=== PATIENT | male | born 1965 | race Caucasian/White ===

== ENCOUNTER 2022-10-13 07:14 | Day surgery (SDC) | payer OTHER ==
[2022-10-13] MEDS ORDERED: Propofol 200 MG/20 ML SDV ONE (08:00)
[2022-10-13] MEDS ORDERED: fentaNYL 50 MCG/ML SDV ONE (08:00)
[2022-10-13] MEDS ORDERED: Midazolam 1 MG/ML 2 ML SDV ONE (08:00)
[2022-10-13] MEDS ORDERED: Lactated Ringers 1,000 ML IV SCH (08:15)
== END 2022-10-13 11:15 | disposition home or self-care (01) ==
LOC: JP.SDS 07:14
PROVIDERS: ATTEND Student in an Organized Health Care Education/Training Program
DX: K21.00 Gastro-esophageal reflux disease with esophagitis, without bleeding (principal); K29.50 Unspecified chronic gastritis without bleeding; K29.80 Duodenitis without bleeding; K31.7 Polyp of stomach and duodenum; K31.1 Adult hypertrophic pyloric stenosis; K31.A19 Gastric intestinal metaplasia without dysplasia, unspecified site; I10 Essential (primary) hypertension; F32.A Depression, unspecified; E78.00 Pure hypercholesterolemia, unspecified; Z88.5 Allergy status to narcotic agent; Z88.1 Allergy status to other antibiotic agents; Z88.8 Allergy status to other drugs, medicaments and biological substances
CPT/HCPCS: 43239; 88305; 88342; J2250; J2704; J3010; J7120

== ENCOUNTER 2022-12-20 11:00 | Inpatient (IN) | payer OTHER ==
[2023-01-03] MEDS ORDERED: Scopolamine 1.5 MG Transdermal Patch TOP ONE (06:03)
[2023-01-03] MEDS ORDERED: Acetaminophen 500 MG Tab PO ONE (06:15)
[2023-01-03] MEDS ORDERED: Gabapentin 300 MG Cap PO ONE (06:15)
[2023-01-03 06:23] LABS: HEMATOCRIT 42.4 % (38.4-49.7); HEMOGLOBIN 15.2 g/dL (12.9-16.9); MEAN CORPUSCULAR HEMOGLOBIN 29.6 pg (31.6-35.5); MEAN CORPUSCULAR HGB CONC 35.8 g/dL (31.6-35.5); MEAN CORPUSCULAR VOLUME 82.7 fL (81.4-99.0); RED BLOOD CELL COUNT 5.13 M/uL (4.14-5.76); WHITE BLOOD CELL COUNT,WBC 6.9 K/uL (3.2-11.0)
[2023-01-03] MEDS ORDERED: Enoxaparin 40 MG/0.4 ML Syringe SUBCUT ONE (06:30)
[2023-01-03 06:44] LABS: A/G RATIO 1.1 (1.2-2.2); ALANINE AMINOTRANSFERASE,ALT 49 U/L (12-78); ALBUMIN 4.3 g/dL (3.4-5.0); ALKALINE PHOSPHATASE 86 U/L (46-116); ASPARTATE AMNIOTRANSFERASE,AST 25 U/L (15-37); BLOOD UREA NITROGEN,BUN 16 mg/dL (7-18); CARBON DIOXIDE,CO2 26 mmol/L (21-32); CHLORIDE,CL 102 mmol/L (100-108); ESTIMATED GFR 87 mL/min (>60); GLUCOSE RANDOM 145 mg/dL (74-106); POTASSIUM,K 3.2 mmol/L (3.6-5.2); PROTEIN TOTAL,TP 8.1 g/dL (6.4-8.2); SODIUM,NA 137 mmol/L (140-148)
[2023-01-03 06:46] LABS: ANION GAP 12.2 mmol/L (5.0-14.0)
[2023-01-03] MEDS ORDERED: Glycopyrrolate 0.2 MG/ML 5 ML MDV ONE (06:55)
[2023-01-03] MEDS ORDERED: Neostigmine Methylsulfate 1 MG/ML 5 ML Syringe ONE (06:55)
[2023-01-03] MEDS ORDERED: Succinylcholine 200 MG/10 ML MDV ONE (06:55)
[2023-01-03] MEDS ORDERED: Propofol 200 MG/20 ML SDV ONE (06:55)
[2023-01-03] MEDS ORDERED: Rocuronium 50 MG/5 ML Vial ONE (06:55)
[2023-01-03] MEDS ORDERED: Dexamethasone 4 MG/ML SDV ONE (06:55)
[2023-01-03] MEDS ORDERED: Ondansetron 4 MG/2 ML SDV ONE (06:55)
[2023-01-03] MEDS ORDERED: fentaNYL 250 MCG/5 ML SDV ONE ×2 (06:57→08:29)
[2023-01-03] MEDS ORDERED: Sodium Chloride 0.9% 1,000 ML IV SCH (07:00)
[2023-01-03] MEDS ORDERED: Bupivacaine 0.5%/EPINEPHrine 1:200,000 50 ML MDV ONE ×2 (07:02→07:04)
[2023-01-03] MEDS ORDERED: metroNIDAZOLE/Normal Saline 500 MG in Premix Bag 1 BAG IV ONE (07:30)
[2023-01-03] MEDS ORDERED: Ketamine 500 MG/5 ML MDV IV SCH (07:30)
[2023-01-03] MEDS ORDERED: Ketamine 25 MG in Sodium Chloride 0.9% 19.75 ML IV SCH (07:30)
[2023-01-03] MEDS: Potassium Chloride 10 MEQ in Premix Bag 1 BAG IV SCH ×5 (07:30→11:50)
[2023-01-03] MEDS ORDERED: cefTRIAXone 2 GM in Sodium Chloride 0.9% 50 ML IV ONE (07:30)
[2023-01-03] MEDS ORDERED: Lactated Ringers 1,000 ML ONE (09:09)
[2023-01-03] MEDS: Lactated Ringers 1,000 ML IV SCH ×2 (11:29→19:49)
[2023-01-03] MEDS ORDERED: HYDROmorphone 0.5 MG/0.5 ML Syringe IVPUSH ONE (11:52)
[2023-01-03] MEDS: Acetaminophen 1,000 MG in Premix Bag 1 BAG IV SCH ×2 (13:58→22:56)
[2023-01-03 14:29] LABS: CALCIUM 8.5 mg/dL (8.5-10.1); EST CRCL DRUG DOSING (CG) 87.3 mL/min; MAGNESIUM 1.9 mg/dL (1.8-2.4); PHOSPHORUS 3.6 mg/dL (2.5-4.9); POTASSIUM,K 3.6 mmol/L (3.6-5.2)
[2023-01-03 14:46] LABS: ANION GAP 11.6 mmol/L (5.0-14.0)
[2023-01-03] MEDS: Ondansetron 4 MG/2 ML SDV IVPUSH PRN ×2 (16:55→23:10)
[2023-01-03] MEDS: HYDROmorphone 2 MG Tab PO PRN ×2 (16:55→22:56)
[2023-01-03] MEDS ORDERED: Enoxaparin 40 MG/0.4 ML Syringe SUBCUT SCH (23:00)
[2023-01-04] MEDS: Lactated Ringers 1,000 ML IV SCH ×2 (04:07→17:02)
[2023-01-04] MEDS: HYDROmorphone 2 MG Tab PO PRN ×2 (05:04→18:25)
[2023-01-04] MEDS: Acetaminophen 1,000 MG in Premix Bag 1 BAG IV SCH ×3 (05:06→21:30)
[2023-01-04 05:50] LABS: HEMATOCRIT 28.8 % (38.4-49.7); HEMOGLOBIN 10.2 g/dL (12.9-16.9); MEAN CORPUSCULAR HEMOGLOBIN 29.6 pg (31.6-35.5); MEAN CORPUSCULAR HGB CONC 35.4 g/dL (31.6-35.5); MEAN CORPUSCULAR VOLUME 83.5 fL (81.4-99.0); RED BLOOD CELL COUNT 3.45 M/uL (4.14-5.76); WHITE BLOOD CELL COUNT,WBC 12.7 K/uL (3.2-11.0)
[2023-01-04 06:11] LABS: A/G RATIO 1.1 (1.2-2.2); ALANINE AMINOTRANSFERASE,ALT 622 U/L (12-78); ALBUMIN 3.1 g/dL (3.4-5.0); ALKALINE PHOSPHATASE 62 U/L (46-116); ASPARTATE AMNIOTRANSFERASE,AST 368 U/L (15-37); BILIRUBIN TOTAL 0.7 mg/dL (0.2-1.0); BLOOD UREA NITROGEN,BUN 22 mg/dL (7-18); CALCIUM 8.1 mg/dL (8.5-10.1); CARBON DIOXIDE,CO2 27 mmol/L (21-32); CHLORIDE,CL 104 mmol/L (100-108); ESTIMATED GFR 87 mL/min (>60); GLUCOSE RANDOM 150 mg/dL (74-106); MAGNESIUM 1.9 mg/dL (1.8-2.4); POTASSIUM,K 3.6 mmol/L (3.6-5.2); SODIUM,NA 136 mmol/L (140-148)
[2023-01-04 06:14] LABS: ANION GAP 8.6 mmol/L (5.0-14.0)
[2023-01-04] MEDS ORDERED: Lactated Ringers 500 ML IV ONE ×2 (08:00→15:31)
[2023-01-04] MEDS ORDERED: Non-Formulary Medication 1 Each (Atorvastatin [Lipitor] 80 MG Tablet) PO SCH (09:00)
[2023-01-04] MEDS ORDERED: atorvaSTATin 20 MG Tab PO SCH (09:00)
[2023-01-04 09:06] LABS: HEMATOCRIT 27.3 % (38.4-49.7); HEMOGLOBIN 9.6 g/dL (12.9-16.9); MEAN CORPUSCULAR HEMOGLOBIN 29.7 pg (31.6-35.5); MEAN CORPUSCULAR HGB CONC 35.2 g/dL (31.6-35.5); MEAN CORPUSCULAR VOLUME 84.5 fL (81.4-99.0); RED BLOOD CELL COUNT 3.23 M/uL (4.14-5.76); WHITE BLOOD CELL COUNT,WBC 14.2 K/uL (3.2-11.0)
[2023-01-04] MEDS: Pantoprazole 40 MG Vial IVPUSH SCH (09:44)
[2023-01-04] MEDS ORDERED: Metoprolol Tartrate 25 MG Tab PO SCH (10:00)
[2023-01-04 13:21] LABS: HEMATOCRIT 25.9 % (38.4-49.7); HEMOGLOBIN 9.3 g/dL (12.9-16.9); MEAN CORPUSCULAR HGB CONC 35.9 g/dL (31.6-35.5); MEAN CORPUSCULAR VOLUME 83.5 fL (81.4-99.0); RED BLOOD CELL COUNT 3.1 M/uL (4.14-5.76); WHITE BLOOD CELL COUNT,WBC 14.5 K/uL (3.2-11.0)
[2023-01-04 13:59] LABS: ANION GAP 9.6 mmol/L (5.0-14.0); CALCIUM 8.4 mg/dL (8.5-10.1); CREATININE 1.1 mg/dL (0.8-1.3); EST CRCL DRUG DOSING (CG) 79.36 mL/min; POTASSIUM,K 3.6 mmol/L (3.6-5.2)
[2023-01-04] MEDS ORDERED: Lidocaine 2% Jelly 10 ML Urojet MUCMEM ONE (16:20)
[2023-01-04] MEDS ORDERED: HYDROmorphone 0.5 MG/0.5 ML Syringe IVPUSH STA (19:39)
[2023-01-04] MEDS: Ondansetron 4 MG/2 ML SDV IVPUSH PRN (19:52)
[2023-01-04 20:07] LABS: HEMATOCRIT 23.8 % (38.4-49.7); HEMOGLOBIN 8.4 g/dL (12.9-16.9); MEAN CORPUSCULAR HEMOGLOBIN 29.8 pg (31.6-35.5); MEAN CORPUSCULAR HGB CONC 35.3 g/dL (31.6-35.5); MEAN CORPUSCULAR VOLUME 84.4 fL (81.4-99.0); RED BLOOD CELL COUNT 2.82 M/uL (4.14-5.76); WHITE BLOOD CELL COUNT,WBC 11.7 K/uL (3.2-11.0)
[2023-01-04 20:27] LABS: ANION GAP 6.8 mmol/L (5.0-14.0); CALCIUM 8.1 mg/dL (8.5-10.1); CREATININE 0.9 mg/dL (0.8-1.3); MAGNESIUM 1.9 mg/dL (1.8-2.4); PHOSPHORUS 2.3 mg/dL (2.5-4.9); POTASSIUM,K 3.8 mmol/L (3.6-5.2)
[2023-01-04 20:36] LABS: INR 1.1; PROTHROMBIN TIME 11.5 sec (9.2-10.6)
[2023-01-04] MEDS: Tamsulosin 0.4 MG Cap.ER PO SCH (20:42)
[2023-01-04] MEDS ORDERED: Sodium Phosphate 15 mMole/5 ML SDV IV ONE (20:48)
[2023-01-04] MEDS ORDERED: Sodium Phosphate 15 MMOLE in Sodium Chloride 0.9% 250 ML IV ONE (21:00)
[2023-01-05] MEDS: Lactated Ringers 1,000 ML IV SCH ×3 (01:19→16:33)
[2023-01-05 04:24] LABS: HEMATOCRIT 21.6 % (38.4-49.7); HEMOGLOBIN 7.6 g/dL (12.9-16.9); MEAN CORPUSCULAR HEMOGLOBIN 29.9 pg (31.6-35.5); MEAN CORPUSCULAR HGB CONC 35.2 g/dL (31.6-35.5); RED BLOOD CELL COUNT 2.54 M/uL (4.14-5.76); WHITE BLOOD CELL COUNT,WBC 8.7 K/uL (3.2-11.0)
[2023-01-05 04:45] LABS: ALANINE AMINOTRANSFERASE,ALT 835 U/L (12-78); ALBUMIN 2.8 g/dL (3.4-5.0); ALKALINE PHOSPHATASE 55 U/L (46-116); ANION GAP 8.3 mmol/L (5.0-14.0); ASPARTATE AMNIOTRANSFERASE,AST 366 U/L (15-37); BILIRUBIN TOTAL 0.6 mg/dL (0.2-1.0); BLOOD UREA NITROGEN,BUN 19 mg/dL (7-18); CALCIUM 7.8 mg/dL (8.5-10.1); CARBON DIOXIDE,CO2 29 mmol/L (21-32); CHLORIDE,CL 104 mmol/L (100-108); CREATININE 0.9 mg/dL (0.8-1.3); ESTIMATED GFR 98 mL/min (>60); GLUCOSE RANDOM 117 mg/dL (74-106); PHOSPHORUS 2.2 mg/dL (2.5-4.9); POTASSIUM,K 3.6 mmol/L (3.6-5.2); PROTEIN TOTAL,TP 5.6 g/dL (6.4-8.2); SODIUM,NA 141 mmol/L (140-148)
[2023-01-05] MEDS ORDERED: Sodium Phosphate 15 mMole/5 ML SDV IV ONE (07:04)
[2023-01-05] MEDS ORDERED: Sodium Phosphate 15 MMOLE in Sodium Chloride 0.9% 250 ML IV ONE (09:00)
[2023-01-05] MEDS: HYDROmorphone 2 MG Tab PO PRN ×2 (09:11→15:48)
[2023-01-05] MEDS: Pantoprazole 40 MG Vial IVPUSH SCH (09:18)
[2023-01-05] MEDS: Acetaminophen 500 MG Tab PO SCH ×2 (09:49→17:02)
[2023-01-05 15:18] LABS: HEMATOCRIT 21.7 % (38.4-49.7); HEMOGLOBIN 7.6 g/dL (12.9-16.9); MEAN CORPUSCULAR HEMOGLOBIN 29.7 pg (31.6-35.5); MEAN CORPUSCULAR VOLUME 84.8 fL (81.4-99.0); RED BLOOD CELL COUNT 2.56 M/uL (4.14-5.76); WHITE BLOOD CELL COUNT,WBC 8.5 K/uL (3.2-11.0)
[2023-01-05 15:34] LABS: CALCIUM 8.1 mg/dL (8.5-10.1); CREATININE 0.9 mg/dL (0.8-1.3); PHOSPHORUS 2.1 mg/dL (2.5-4.9); POTASSIUM,K 3.4 mmol/L (3.6-5.2)
[2023-01-05 15:43] LABS: ANION GAP 10.4 mmol/L (5.0-14.0)
[2023-01-05] MEDS ORDERED: Potassium Chloride 10 MEQ in Premix Bag 1 BAG IV ONE (16:30)
[2023-01-05] MEDS ORDERED: Sodium Phosphate 30 MMOLE in Sodium Chloride 0.9% 250 ML IV ONE (17:30)
[2023-01-05] MEDS: Tamsulosin 0.4 MG Cap.ER PO SCH (21:11)
[2023-01-06] MEDS: Acetaminophen 500 MG Tab PO SCH ×3 (01:24→18:23)
[2023-01-06 04:50] LABS: HEMATOCRIT 19.7 % (38.4-49.7); MEAN CORPUSCULAR HEMOGLOBIN 29.7 pg (31.6-35.5); MEAN CORPUSCULAR HGB CONC 34.5 g/dL (31.6-35.5); RED BLOOD CELL COUNT 2.29 M/uL (4.14-5.76); WHITE BLOOD CELL COUNT,WBC 6.4 K/uL (3.2-11.0)
[2023-01-06 04:58] LABS: HEMOGLOBIN 6.8 g/dL (12.9-16.9)
[2023-01-06 05:09] LABS: ALANINE AMINOTRANSFERASE,ALT 528 U/L (12-78); ALBUMIN 2.9 g/dL (3.4-5.0); ALKALINE PHOSPHATASE 56 U/L (46-116); ASPARTATE AMNIOTRANSFERASE,AST 155 U/L (15-37); BILIRUBIN TOTAL 0.8 mg/dL (0.2-1.0); BLOOD UREA NITROGEN,BUN 11 mg/dL (7-18); CARBON DIOXIDE,CO2 28 mmol/L (21-32); CHLORIDE,CL 107 mmol/L (100-108); CREATININE 0.7 mg/dL (0.8-1.3); EST CRCL DRUG DOSING (CG) 124.71 mL/min; ESTIMATED GFR 106 mL/min (>60); GLUCOSE RANDOM 102 mg/dL (74-106); POTASSIUM,K 3.4 mmol/L (3.6-5.2); PROTEIN TOTAL,TP 5.7 g/dL (6.4-8.2); SODIUM,NA 142 mmol/L (140-148)
[2023-01-06 05:11] LABS: ANION GAP 10.4 mmol/L (5.0-14.0)
[2023-01-06] MEDS ORDERED: Sodium Phosphate 30 MMOLE in Sodium Chloride 0.9% 250 ML IV ONE ×2 (07:00→09:00)
[2023-01-06] MEDS ORDERED: Furosemide 40 MG/4 ML VIAL IV ONE (09:00)
[2023-01-06] MEDS ORDERED: Metoprolol Succinate 50 MG Tab.ER PO ONE (09:00)
[2023-01-06] MEDS: Pantoprazole 40 MG Vial IVPUSH SCH (09:23)
[2023-01-06] MEDS: Lisinopril 20 MG Tab PO SCH (09:44)
[2023-01-06] MEDS: Hydrochlorothiazide 12.5 MG Cap PO SCH (09:44)
[2023-01-06 11:52] LABS: BASOPHILS ABSOLUTE AUTO 0.04 K/uL (0.00-0.10); BASOPHILS PERCENT AUTO 0.5 % (0.1-1.3); EOSINOPHILS ABSOLUTE AUTO 0.18 K/uL (0.00-0.40); EOSINOPHILS PERCENT AUTO 2.2 % (0.0-5.4); HEMATOCRIT 24.6 % (38.4-49.7); HEMOGLOBIN 8.8 g/dL (12.9-16.9); IMMATURE GRAN ABSOLUTE AUTO 0.07 K/uL (0.00-0.23); IMMATURE GRAN PERCENT AUTO 0.8 % (0.0-0.7); LYMPHOCYTES PERCENT AUTO 15.6 % (11.4-47.7); MEAN CORPUSCULAR HGB CONC 35.8 g/dL (31.6-35.5); MONOCYTES ABSOLUTE AUTO 0.75 K/uL (0.20-0.90); NEUTROPHILS ABSOLUTE AUTO 5.99 K/uL (1.0-7.6); NEUTROPHILS PERCENT AUTO 71.9 % (40.0-78.1); PLATELET COUNT,PLT 88 K/uL (130-375); RED BLOOD CELL COUNT 2.93 M/uL (4.14-5.76); WHITE BLOOD CELL COUNT,WBC 8.3 K/uL (3.2-11.0)
[2023-01-06] MEDS: Lactated Ringers 1,000 ML IV SCH (12:28)
[2023-01-06] MEDS: HYDROmorphone 2 MG Tab PO PRN (13:23)
[2023-01-06] MEDS: Potassium Phos in 0.9 % NaCl 15 MMOL in Premix Bag 1 BAG IV SCH ×6 (13:35→18:23)
[2023-01-06] MEDS ORDERED: Metoprolol Succinate 25 MG Tab.ER PO SCH (21:00)
[2023-01-06] MEDS: Tamsulosin 0.4 MG Cap.ER PO SCH (21:18)
[2023-01-07] MEDS: Acetaminophen 500 MG Tab PO SCH ×4 (03:13→18:17)
[2023-01-07 04:49] LABS: BASOPHILS ABSOLUTE AUTO 0.03 K/uL (0.00-0.10); BASOPHILS PERCENT AUTO 0.4 % (0.1-1.3); EOSINOPHILS ABSOLUTE AUTO 0.23 K/uL (0.00-0.40); EOSINOPHILS PERCENT AUTO 3.1 % (0.0-5.4); HEMATOCRIT 23.6 % (38.4-49.7); HEMOGLOBIN 8.1 g/dL (12.9-16.9); IMMATURE GRAN ABSOLUTE AUTO 0.05 K/uL (0.00-0.23); IMMATURE GRAN PERCENT AUTO 0.7 % (0.0-0.7); LYMPHOCYTES ABSOLUTE AUTO 1.25 K/uL (0.8-3.3); LYMPHOCYTES PERCENT AUTO 16.7 % (11.4-47.7); MEAN CORPUSCULAR HEMOGLOBIN 29.6 pg (31.6-35.5); MEAN CORPUSCULAR HGB CONC 34.3 g/dL (31.6-35.5); MEAN CORPUSCULAR VOLUME 86.1 fL (81.4-99.0); MONOCYTES ABSOLUTE AUTO 0.66 K/uL (0.20-0.90); MONOCYTES PERCENT AUTO 8.8 % (3.3-12.6); NEUTROPHILS ABSOLUTE AUTO 5.26 K/uL (1.0-7.6); NEUTROPHILS PERCENT AUTO 70.3 % (40.0-78.1); PLATELET COUNT,PLT 88 K/uL (130-375); RED BLOOD CELL COUNT 2.74 M/uL (4.14-5.76); WHITE BLOOD CELL COUNT,WBC 7.5 K/uL (3.2-11.0)
[2023-01-07 05:24] LABS: A/G RATIO 0.8 (1.2-2.2); ALANINE AMINOTRANSFERASE,ALT 365 U/L (12-78); ALKALINE PHOSPHATASE 60 U/L (46-116); ASPARTATE AMNIOTRANSFERASE,AST 76 U/L (15-37); BILIRUBIN TOTAL 1.2 mg/dL (0.2-1.0); BLOOD UREA NITROGEN,BUN 12 mg/dL (7-18); CALCIUM 8.7 mg/dL (8.5-10.1); CARBON DIOXIDE,CO2 28 mmol/L (21-32); CHLORIDE,CL 105 mmol/L (100-108); CREATININE 0.7 mg/dL (0.8-1.3); EST CRCL DRUG DOSING (CG) 124.71 mL/min; ESTIMATED GFR 106 mL/min (>60); GLUCOSE RANDOM 99 mg/dL (74-106); MAGNESIUM 2.1 mg/dL (1.8-2.4); POTASSIUM,K 3.4 mmol/L (3.6-5.2); PRO B-TYPE NATRIUR PEPT,BNPPRO 210 pg/mL (5-125); PROTEIN TOTAL,TP 6.7 g/dL (6.4-8.2); SODIUM,NA 141 mmol/L (140-148)
[2023-01-07 05:28] LABS: ANION GAP 11.4 mmol/L (5.0-14.0)
[2023-01-07] MEDS ORDERED: Sodium Chloride 0.9% 10 ML SDV IV PRN (08:34)
[2023-01-07] MEDS: Pantoprazole 40 MG Tab.CR PO SCH (08:44)
[2023-01-07] MEDS: Metoprolol Succinate 50 MG Tab.ER PO SCH ×2 (08:44→20:48)
[2023-01-07] MEDS: Lisinopril 20 MG Tab PO SCH (08:44)
[2023-01-07] MEDS: Hydrochlorothiazide 12.5 MG Cap PO SCH (08:44)
[2023-01-07] MEDS: Potassium Phos in 0.9 % NaCl 15 MMOL in Premix Bag 1 BAG IV SCH ×6 (08:46→14:41)
[2023-01-07] MEDS ORDERED: Furosemide 20 MG/2 ML VIAL IVPUSH ONE (09:00)
[2023-01-07] MEDS: Tamsulosin 0.4 MG Cap.ER PO SCH (20:48)
[2023-01-08] MEDS: Acetaminophen 500 MG Tab PO SCH ×2 (01:41→09:27)
[2023-01-08 04:30] LABS: BASOPHILS ABSOLUTE AUTO 0.03 K/uL (0.00-0.10); BASOPHILS PERCENT AUTO 0.3 % (0.1-1.3); EOSINOPHILS ABSOLUTE AUTO 0.28 K/uL (0.00-0.40); EOSINOPHILS PERCENT AUTO 3.2 % (0.0-5.4); HEMATOCRIT 25.5 % (38.4-49.7); HEMOGLOBIN 8.8 g/dL (12.9-16.9); IMMATURE GRAN ABSOLUTE AUTO 0.03 K/uL (0.00-0.23); IMMATURE GRAN PERCENT AUTO 0.3 % (0.0-0.7); LYMPHOCYTES ABSOLUTE AUTO 1.33 K/uL (0.8-3.3); LYMPHOCYTES PERCENT AUTO 15.2 % (11.4-47.7); MEAN CORPUSCULAR HEMOGLOBIN 29.8 pg (31.6-35.5); MEAN CORPUSCULAR HGB CONC 34.5 g/dL (31.6-35.5); MEAN CORPUSCULAR VOLUME 86.4 fL (81.4-99.0); MONOCYTES ABSOLUTE AUTO 0.76 K/uL (0.20-0.90); MONOCYTES PERCENT AUTO 8.7 % (3.3-12.6); NEUTROPHILS ABSOLUTE AUTO 6.31 K/uL (1.0-7.6); NEUTROPHILS PERCENT AUTO 72.3 % (40.0-78.1); PLATELET COUNT,PLT 110 K/uL (130-375); RED BLOOD CELL COUNT 2.95 M/uL (4.14-5.76); WHITE BLOOD CELL COUNT,WBC 8.7 K/uL (3.2-11.0)
[2023-01-08 04:58] LABS: ALANINE AMINOTRANSFERASE,ALT 270 U/L (12-78); ALBUMIN 3.2 g/dL (3.4-5.0); ALKALINE PHOSPHATASE 71 U/L (46-116); BILIRUBIN TOTAL 1.9 mg/dL (0.2-1.0); BLOOD UREA NITROGEN,BUN 17 mg/dL (7-18); CALCIUM 8.6 mg/dL (8.5-10.1); CARBON DIOXIDE,CO2 28 mmol/L (21-32); CHLORIDE,CL 105 mmol/L (100-108); CREATININE 0.7 mg/dL (0.8-1.3); EST CRCL DRUG DOSING (CG) 124.89 mL/min; ESTIMATED GFR 106 mL/min (>60); GLUCOSE RANDOM 103 mg/dL (74-106); MAGNESIUM 2.1 mg/dL (1.8-2.4); PHOSPHORUS 3.3 mg/dL (2.5-4.9); POTASSIUM,K 3.7 mmol/L (3.6-5.2); PRO B-TYPE NATRIUR PEPT,BNPPRO 114 pg/mL (5-125); PROTEIN TOTAL,TP 6.5 g/dL (6.4-8.2); SODIUM,NA 139 mmol/L (140-148)
[2023-01-08 05:08] LABS: ANION GAP 9.7 mmol/L (5.0-14.0); ASPARTATE AMNIOTRANSFERASE,AST 65 U/L (15-37)
[2023-01-08 05:38] VITALS: BP 136/80; PULSE 80
[2023-01-08] MEDS: Pantoprazole 40 MG Tab.CR PO SCH (07:35)
[2023-01-08] MEDS: Lisinopril 20 MG Tab PO SCH (09:27)
[2023-01-08] MEDS: Hydrochlorothiazide 12.5 MG Cap PO SCH (09:27)
[2023-01-08] MEDS: Metoprolol Succinate 50 MG Tab.ER PO SCH (09:28)
== END 2023-01-08 10:30 | disposition home or self-care (01) | DRG 620 ==
LOC: JP.SDSSCHI 01-03 05:45 → JP.MS 01-03 10:16 → JP.ICU 01-04 18:00
PROVIDERS: ADMIT Student in an Organized Health Care Education/Training Program; ATTEND Student in an Organized Health Care Education/Training Program
PROC: 0DB64Z3 Excision of Stomach, Percutaneous Endoscopic Approach, Vertical (ICD-10-PCS; principal; 2023-01-03)
PROC: 8E0W4CZ Robotic Assisted Procedure of Trunk Region, Percutaneous Endoscopic Approach (ICD-10-PCS; 2023-01-03)
DX: E66.01 Morbid (severe) obesity due to excess calories (principal); D62 Acute posthemorrhagic anemia; I10 Essential (primary) hypertension; I25.10 Atherosclerotic heart disease of native coronary artery without angina pectoris; E78.5 Hyperlipidemia, unspecified; G47.33 Obstructive sleep apnea (adult) (pediatric); D69.6 Thrombocytopenia, unspecified; E87.6 Hypokalemia; E83.39 Other disorders of phosphorus metabolism; K21.9 Gastro-esophageal reflux disease without esophagitis; Z79.899 Other long term (current) drug therapy; Z98.890 Other specified postprocedural states; Z68.41 Body mass index [BMI] 40.0-44.9, adult
CPT/HCPCS: 36415; 36430; 51701; 51798; 80048; 80053; 82947; 83735; 83880; 84100; 85025; 85027; 85610; 86850; 86900; 86901; 86920; 86922; 88307; 88342; 93005; 93010; A9270-GY; C1758; C9113; J0131; J0330; J0696; J1100; J1170; J1650; J1940; J2405; J2704; J2710; J3010; J3480; J3490; J7030; J7050; J7120; P9016; U0002